=== PATIENT | male | born 1990 | race African-American/Black ===

== ENCOUNTER 2019-07-05 10:01 | Emergency (ER) | payer OTHER ==
[2019-07-05 10:13] VITALS: BP 100/72; PULSE 84; TEMP 98.3; BMI 20.2
--- NOTE | 2019-07-05 11:42 | PDOC ---
History of Present Illness - General Chief Complaint: Respiratory Stated Complaint: FLU SYMPTOMS Time Seen by Provider: 07/05/19 11:17 History Source: Patient, Parent(s) (mother) Exam Limitations: Clinical Condition - History of Present Illness Initial Comments: 07/05/19 11:38 Patient with mental developmental disability brought in by mother with complaint of 5-day history of decreased appetite, nasal congestion, and patient not wanting to swallow. Mother reports feels patient might have throat discomfort. Denies fever, vomiting, diarrhea. Mother report has been giving patient fluids orally and liquid diet for the past 5 days. Denies given any antipyretics. Denies any other symptoms Is this a multiple visit Asthma Patient?: No Timing/Duration: other (5 days) Past History - Past Medical History Allergies/Adverse Reactions: Allergies Allergy/AdvReac Type Severity Reaction Status Date / Time No Known Allergies Allergy Verified 07/05/19 10:13 Home Medications: Ambulatory Orders Amoxicillin - [Amoxicillin 500mg Capsule -] 500 mg PO BID #14 capsule 07/05/19 COPD: No - Psycho Social/Smoking Cessation Hx Smoking History: Never smoked Review of Systems - Review of Systems Able to Perform ROS?: No (developmental disability) Is the patient limited [place] proficient: No Constitutional: No: Chills, Fever HEENTM: Yes: Symptoms Reported, See HPI, Nose Congestion, Throat Pain. No: Eye Pain, Blurred Vision, Tearing, Recent change in vision, Double Vision, Cataracts , Ear Pain, Ocular Prothesis, Ear Discharge, Nose Pain, Tinnitus, Nose Bleeding , Hearing Loss, Throat Swelling, Mouth Pain, Dental Problems, Difficulty Swallowing, Mouth Swelling, Other Respiratory: No: Symptoms reported, See HPI, Cough, Orthopnea, Shortness of Breath, SOB with Exertion, SOB at Rest, Stridor, Wheezing, Productive cough, Hemoptysis, Other Cardiac (ROS): No: Symptoms Reported, See HPI, Chest Pain, Edema, Irregular Heart Rate, Lightheadedness, Palpitations, Syncope, Chest Tightness, Other ABD/GI: No: Symptoms Reported, Constipated, Diarrhea, Vomiting Integumentary: No: Symptoms Reported, Rash Neurological: No: Symptoms reported, Unsteady Gait, Dizziness All Other Systems: Reviewed and Negative *Physical Exam - Vital Signs Last Vital Signs Temp Pulse Resp BP Pulse Ox 98.3 F 84 18 100/72 99 07/05/19 10:09 07/05/19 10:09 07/05/19 10:09 07/05/19 10:07/05/19 10:09 - Physical Exam 07/05/19 11:41 GENERAL: Well developed, well nourished. Awake and alert. No acute distress. HEENT: Mild pharyngeal erythema without exudates. Normocephalic, atraumatic. PERRLA, EOMI. No conjunctival pallor. Sclera are non-icteric. Moist mucous membranes. . NECK: Supple. Full ROM. CARDIOVASCULAR: Regular rate and rhythm. No murmurs, rubs, or gallops. PULMONARY: No evidence of respiratory distress. Lungs clear to auscultation bilaterally. No wheezing, rales or rhonchi. ABDOMINAL: Soft. Non-tender. Non-distended. No rebound or guarding. No organomegaly. Normoactive bowel sounds. MUSCULOSKELETAL Normal range of motion at all joints. SKIN: Warm and dry. Normal capillary refill. No rashes. NEUROLOGICAL: Alert, awake, appropriate. Gait is normal without ataxia. PSYCHIATRIC: Cooperative. Good eye contact. Appropriate mood General Appearance: Yes: Nourished, Appropriately Dressed. No: Apparent Distress Medical Decision Making - Medical Decision Making 07/05/19 11:40 Patient with mental developmental disability brought in by mother with complaint of 5-day history of decreased appetite, nasal congestion, and patient not wanting to swallow. Mother reports feels patient might have throat discomfort. Denies fever, vomiting, diarrhea. Mother report has been giving patient fluids orally and liquid diet for the past 5 days. Denies given any antipyretics. Denies any other symptoms Exam significant for mild pharyngeal erythema otherwise unremarkable exam with patient afebrile and lungs clear to auscultation bilateral. Symptoms likely viral URI with pharyngitis versus strep. Rapid strep ordered to rule out strep pharyngitis 07/05/19 12:12 Rapid strep negative however mother states patient had throat infection and given low sensitivity of rapid strep test, will treat empirically amoxicillin antibiotics pending throat culture result with advised to increase fluid intake and follow-up with PCP Discharge - Discharge Information Problems reviewed: Yes Clinical Impression/Diagnosis: Pharyngitis Qualifiers: Pharyngitis/tonsillitis etiology: unspecified etiology Qualified Code(s): J02.9 - Acute pharyngitis, unspecified Condition: Stable Disposition: HOME - Admission No - Additional Discharge Information Prescriptions: Amoxicillin - [Amoxicillin 500mg Capsule -] 500 mg PO BID #14 capsule - Follow up/Referral - Patient Discharge Instructions Patient Printed Discharge Instructions: DI for Pharyngitis/Tonsillopharyngitis -- Adult Additional Instructions: Strep test is negative however rapid strep test 100% sensitive and throat culture has been sent to the lab to confirm strep. Patient has been treated empirically pending throat culture result. Increase fluid intake and follow-up with primary care as needed - Post Discharge Activity
[2019-07-05] MEDS ORDERED: DEXAMETHASONE LIQUID 0.5 MG/5 ML PO ONE (12:10)
[2019-07-05] MEDS ORDERED: DEXAMETHASONE SOD PHOSPHATE 10 MG/1 ML VIAL ONE (12:12)
== END 2019-07-05 12:15 | disposition home or self-care (01) ==
LOC: JERFT 10:01
DX: J02.9 Acute pharyngitis, unspecified (principal); F79 Unspecified intellectual disabilities
CPT/HCPCS: 87070; 87880; 99283-25